=== PATIENT | female | born 1950 | race Caucasian/White ===

== ENCOUNTER 2017-10-22 21:26 | Emergency (ER) | payer OTHER ==
[~2017-10-22] VITALS: Ht 167.6 cm; Wt 76.2 kg
[~2017-10-22 21:26] MED LIST: ALBUTEROL S5 MG/1 ML INH; BIOTIN PO; COUMADIN 5 MG TA5 MG PO; HYDROCODONE/ACE1 TA1 PO; LOPRESSOR 25MG25 MG PO; LOVAZA1 GM PO; MASON NATURAL2000 IU PO; NORVASC 5MG TAB5 MG PO; NUVIGIL250 MG PO; PROTONIX 40MG T40 MG PO; SINGULAIR10 MG PO; SYNTHROID0.075 MG PO; ULTRAM(MONOGRAP50 MG PO; VALIUM 10 MG. T10 MG PO; XYZAL5 MG PO
[2017-10-22 21:30] VITALS: BP 166/91
--- NOTE | 2017-10-22 21:59 | ED GENERAL ADULT ---
History of Present Illness General Chief Complaint: Animal/Insect Bite Stated Complaint: "I GOT BIT BY A SPIDER" Source: patient Exam Limitations: no limitations Reconcile Medications Albuterol Sulfate 5 MG/ML SOLUTION 1 ML INH Q6 PRN ASTHMA Albuterol Sulfate 5 MG/ML SOLUTION 1 ML INH Q6 PRN ASTHMA Albuterol Sulfate 5 MG/ML SOLUTION 1 ML INH Q6 PRN ASTHMA Amlodipine (Norvasc 5MG Tab) 5 MG TABLET 1 TAB PO DAILY BLOOD PRESSURE ( Reported) Armodafinil (Nuvigil) 250 MG TABLET 1 TAB PO DAILY PRN SLEEP APNEA (Reported) [BIOTIN] 500 MCG PO DAILY SUPPLEMENT (Reported) CHOLECALCIFEROL (VITAMIN D3) (Vitamin D) 2,000 UNIT CAPSULE 1 CAP PO DAILY SUPPLEMENT (Reported) Diazepam (Valium 10 Mg. Tablet) 10 MG TABLET 1 TAB PO TID PRN SPASMS HYDROCODONE/ACETAMINOPHEN (Hydrocodon-Acetaminophen 5-325) 5 MG-325 MG TABLET 1-2 TAB PO Q4-6 PRN PAIN (Reported) LEVOCETIRIZINE DIHYDROCHLORIDE (Xyzal) 5 MG TABLET 1 TAB PO QPM ALLERGIES ( Reported) Levothyroxine Sodium (Synthroid) 0.075 MG TAB 1 TAB PO DAILY THYROID ( Reported) Metoprolol Tartrate (Lopressor) 25 MG TABLET 1 TAB PO DAILY BLOOD PRESSURE ( Reported) Montelukast Sodium (Singulair) 10 MG TABLET 1 TAB PO DAILY ALLERGIES ( Reported) Ezpmm-4-Tkog Ethyl Esters (Lovaza) 1 GRAM CAPSULE 2 CAP PO BID CHOLESTEROL ( Reported) Pantoprazole Sodium (Protonix) 40 MG TABLET.DR 1 TAB PO DAILY HEARTBURN ( Reported) Tramadol HCl (Ultram) 50 MG TABLET 1-2 MG PO Q4P PRN PAIN SCALE 1-3 Warfarin Sodium (Coumadin) 5 MG TABLET 1-1.5 TAB PO DAILY DVT PROPHYLAXIS Triage Note: 67F REPORTS SHE WAS IN AN OUTDOOR SHOWER APPROX 7PM AND NOTICED A SUMNER SPIDER ON HER LEFT ARM AFTER FEELING PAIN, FLICKED IT OFF AND THEN ARM BEGAN TO GET SWOLLEN HOT AND ITCHY. NO NEURO IMPAIRMENTS, NUMBNESS, DIZZINESS, CP/SOB REPORTED Triage Nurses Notes Reviewed? yes Onset: Gradual Duration: hour(s): Timing: constant HPI: 67-year-old female with a history of hypertension, asthma, hypothyroid presenting with pain, redness, and pruritus to her left forearm status post suspected spider bite a few hours prior to arrival. Patient states that she saw a spider on her left forearm while she was in an outdoor shower, she flipped the spider off of her, but just before flicking off had felt a sharp pinch similar to a bite. Has had gradual onset of the above symptoms to her left arm since the incident. Has not tried anything for symptomatic relief. Denies numbness or paresthesias. (Bonny Vargas) Vital Signs & Intake/Output Vital Signs & Intake/Output Vital Signs Date Time Temp Pulse Resp B/P B/P Pulse O2 O2 Flow FiO2 Mean Ox Delivery Rate 10/22 2130 98.7 76 18 166/91 99 Room Air ED Intake and Output 10/23 0000 10/22 1200 Intake Total Output Total Balance Patient 168 lb Weight Allergies Coded Allergies: Sulfa (Sulfonamide Antibiotics) (Intermediate, UNKNOWN 10/22/17) morphine (Intermediate, ITCH 10/22/17) acetaminophen (From PERCOCET) (Mild, UNKNOWN 10/22/17) oxycodone (From PERCOCET) (Mild, UNKNOWN 10/22/17) cat dander (UNKNOWN 10/22/17) meperidine (Mild, NAUSEA, GI 10/22/17) (Maria Victoria ROACH,Andrew Freitas) Past History Travel History Traveled to [place] past 21 day No Medical History Any Pertinent Medical History? see below for history Neurological: NONE EENT: allergies Cardiovascular: hypertension Respiratory: asthma Gastrointestinal: GERD Hepatic: NONE Renal: NONE Musculoskeletal: NONE Psychiatric: NONE Endocrine: hypothyroidism Blood Disorders: NONE Cancer(s): NONE CHILD ATTENDANT/Reproductive: NONE History of MRSA: No History of VRE: No History of CDIFF: No Tetanus Vaccine: Surgical History Surgical History: non-contributory Psychosocial History Who do you live with Spouse Services at Home None What is your primary language Moroccan Tobacco Use: Quit >30 days ago ETOH Use: denies use Illicit Drug Use: denies illicit drug use Family History Hx Contributory? No (Bonny Vargas) Review of Systems Review of Systems Constitutional: Reports: no symptoms. EENTM: Reports: no symptoms. Respiratory: Reports: no symptoms. Cardiovascular: Reports: no symptoms. GI: Reports: no symptoms. Genitourinary: Reports: no symptoms. Musculoskeletal: Reports: see HPI. Skin: Reports: see HPI. Neurological/Psychological: Reports: no symptoms. Hematologic/Endocrine: Reports: no symptoms. Immunologic/Allergic: Reports: no symptoms. All Other Systems: Reviewed and Negative (Bonny Vargas) Physical Exam Physical Exam General Appearance: well developed/nourished, no apparent distress, alert, awake , comfortable Head: atraumatic, normal appearance Eyes: Bilateral: normal appearance. Neck: normal inspection Respiratory: normal breath sounds, lungs clear Cardiovascular: regular rate/rhythm Gastrointestinal: soft, non-tender Back: normal inspection Extremities: on exam of the left forearm there are no obvious insect bites, but there is trace erythema, LUE is NV intact. Neurologic/Psych: awake, alert, oriented x 3, normal gait, normal mood/affect Skin: warm/dry Core Measures ACS in differential dx? No CVA/TIA Diagnosis: No Sepsis Present: No Sepsis Focused Exam Completed? No (Bonny Vargas) Progress Differential Diagnoses I considered the following diagnoses in my evaluation of the patient: [Likely with a localized allergic reaction to the spider bite, low concern for cellulitis versus necrotizing fasciitis] Plan of Care: Current Medications Sig/Kelly Start time Last Medication Dose Stop Time Status Admin Diphenhydramine HCl 50 MG ONCE ONE 10/22 2199 UNVr (Benadryl) 10/22 2200 Prednisone 60 MG ONCE ONE 10/22 2199 UNVr 10/22 2200 Patient given Benadryl and prednisone in the emergency department. Offered Medrol Dosepak, but declining at this time as she does not like how steroids make her feel. Will continue using Benadryl for symptomatic relief. Instructed to follow-up with her PMD for reevaluation, and given strict return precautions. Initial ED EKG: none (Bonny Vargas) Departure Departure Disposition: HOME OR SELF CARE Condition: Stable Clinical Impression Primary Impression: Spider bite Referrals: Jaclyn Farrell APRN (PCP/Family) Additional Instructions: Take 25 mg of Benadryl every 6 hours for the next 24 hours. Follow-up with your primary care provider for reevaluation. Return to the emergency department for any new or worsening symptoms. Departure Forms: Customer Survey General Discharge Information (Bonny Vargas) PA/WINK CUTTER OPERATOR Co-Sign Statement Statement: ED Attending supervision documentation- [X] I saw and evaluated the patient. I have also reviewed all the pertinent lab results and diagnostic results. I agree with the findings and the plan of care as documented in the PA's/WINK CUTTER OPERATOR's documentation. Patient presents for evaluation of redness and swelling in the area of a presumed bug bite. Physical examination reveals a small wheal just proximal to the left antecubital fossa with erythema and mild warmth and soft tissue swelling of the proximal left forearm. [] I have reviewed the ED Record and agree with the PA's/WINK CUTTER OPERATOR's documentation. [] Additions or exceptions (if any) to the PAs/WINK CUTTER OPERATOR's note and plan are summarized below: [] (Maria Victoria ROACH,Andrew Freitas) Critical Care Note Critical Care Note Critical Care Time: non-applicable (Geo NAVA,Bonny)
== END 2017-10-22 22:22 ==
LOC: ERH 21:26
DX: S50.862A Insect bite (nonvenomous) of left forearm, initial encounter (principal); W57.XXXA Bitten or stung by nonvenomous insect and other nonvenomous arthropods, initial encounter